=== PATIENT | female | born 1950 | race African-American/Black ===

== ENCOUNTER → 2017-01-28 | Outpatient (CLI) | payer OTHER, MEDICAID ==
[2017-01-28 11:58] LABS: BASOPHILS # (AUTO) 0.1 X10^3/uL (0.0-0.1); BASOPHILS % (AUTO) 1.1 % (0.2-1.0); EOSINOPHILS # (AUTO) 0.2 x10^3/uL (0.0-0.2); EOSINOPHILS % (AUTO) 3.5 % (0.9-2.9); HEMATOCRIT 37.7 % (36.0-47.0); HEMOGLOBIN 12.8 g/dL (12.0-16.0); LYMPHOCYTES # (AUTO) 2.7 X10^3/uL (1.3-2.9); LYMPHOCYTES % (AUTO) 41.9 % (21.0-51.0); MEAN CORPUSCULAR HEMOGLOBIN 30.8 pg (27.0-34.0); MEAN CORPUSCULAR HGB CONC 33.8 g/dL (33.0-35.0); MEAN CORPUSCULAR VOLUME 91.1 fL (80.0-100.0); MEAN PLATELET VOLUME 8.6 fL (7.4-11.0); MONOCYTES # (AUTO) 0.7 x10^3/uL (0.3-0.8); NEUTROPHILS # (AUTO) 2.7 x10^3/uL (2.2-4.8); NEUTROPHILS % (AUTO) 42.5 % (42.0-75.0); PLATELET COUNT 221 X10^3/uL (150.0-450.0); RED BLOOD COUNT 4.14 X10^6/uL (3.5-5.4); RED CELL DISTRIBUTION WIDTH 14.5 % (11.6-16.5); WHITE BLOOD COUNT 6.4 X10^3/uL (3.6-10.0)
[2017-01-28 12:16] LABS: ALANINE AMINOTRANSFERASE 17 Units/L (12-78); ALBUMIN 3.2 g/dL (3.4-5.0); ALKALINE PHOSPHATASE 82 Units/L (46-116); ASPARTATE AMINO TRANSFERASE 15 Units/L (15-37); BLOOD UREA NITROGEN 16 mg/dL (7-18); CALCIUM 8.8 mg/dL (8.5-10.1); CARBON DIOXIDE 30.4 mmol/L (21-32); CHLORIDE 108 mmol/L (98-107); CHOL/HDL RATIO 5.4 (0.0-5.0); CHOLESTEROL 216 mg/dL (0-200); COR CA(FOR HYPOALB) 9.4 mg/dL (8.5-10.1); CREATININE 0.83 mg/dL (0.55-1.02); HDL CHOLESTEROL 40 mg/dL (40-60); SODIUM 141 mmol/L (136-145); T4 (THYROXINE) 7.9 ug/dL (4.7-13.3); TOTAL PROTEIN 7.2 g/dL (6.4-8.2); TRIGLYCERIDES 52 mg/dL (0-150); TSH (3RD GENERATION) 0.924 uIU/mL (0.358-3.74); eGFR BLACK RACES > 60 (>60); eGFR NON BLACK RACES > 60 (>60)
== END ==
LOC: RAD 10:56
PROVIDERS: ATTEND Psychiatry & Neurology Neurology
DX: R29.90 Unspecified symptoms and signs involving the nervous system (principal); R94.31 Abnormal electrocardiogram [ECG] [EKG]; E78.4 Other hyperlipidemia
CPT/HCPCS: 36415; 80053; 80061; 82607; 82746; 84436; 84443; 84480; 85025; 86592; 93005; 93010

== ENCOUNTER → 2017-02-02 | Outpatient (CLI) | payer OTHER, MEDICAID ==
--- NOTE | 2017-02-02 19:21 | VAS ---
HISTORY: Stroke Study: Color flow and duplex Doppler studies were performed of the neck vessels. Comparison: None Technique: Multiple pina scale and color flow Doppler images of the right and left carotid arterial s ystem were obtained. The vertebral arterial system was evaluated as well. Findings: There is mild intimal thickening and minimal plaque in the bifurcations. There is no significant incr ease in the peak velocities on the right. The peak velocity on the left measures 103 centimeters/seco nd . The ICA to CCA ratio on the right is 0.8 and on the left is 1.9. The vertebrals were not well de lineated. IMPRESSION: Mild intimal thickening and minimal plaque in the bifurcations causing narrowing along the proximal l eft internal carotid artery in the range of 15-30% with no hemodynamically significant narrowing or p laque seen. Reported By:
--- NOTE | 2017-02-03 08:39 | MRI ---
STUDY: MRI OF THE BRAIN WITHOUT GADOLINIUM HISTORY: Stroke-like symptoms. Headaches, weakness, altered mental status. Technique: Multiplanar multi-sequence MRI of the brain was obtained utilizing standard departmental p rotocol. Sagittal and axial T1, axial T2, FLAIR, diffusion (DWI/ADC) images through the brain were pe rformed. Comparison: None. Findings: The sulci, cisterns and ventricles are prominent consistent with diffuse volume loss. There are confl uent and scattered foci of T2 prolongation in the periventricular and subcortical white matter of bot h hemispheres. This is a nonspecific finding which likely represents microangiopathic change in a pat ient of this age. There are old lacunar infarcts with cystic encephalomalacia in both basal ganglia. There is an old in farct in the body of the corpus callosum. There are old infarcts in the cerebellar hemispheres bilate rally. There is no evidence of acute territorial infarction, hemorrhage, mass, mass effect, or midlin e shift. There are no abnormal intra-axial or extra-axial fluid collections. The major intracranial vascular flow voids appear intact. The vertebral arteries are codominent. IMPRESSION: 1. No evidence of acute intracranial abnormality. 2. 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 3. Nonspecific white matter change and volume loss. Reported By:
--- NOTE | 2017-02-03 08:56 | MRI ---
STUDY: MRA OF THE BRAIN HISTORY: Stroke-like symptoms. Headaches, weakness, altered mental status. Comparison: None. Technique: 3D [id number] imaging of the intracranial circulation was performed. 3D reformatted i mages were performed and reviewed. Findings: 3D [id number] MRA examination shows focal stenosis in the distal right vertebral artery . This is just distal to a branch, and there is subsequent normalization of flow related enhancement just befo re the basilar artery. There is atherosclerotic irregularity in the cavernous internal carotid arteri es bilaterally. There is a small stenosis at the left MCA bifurcation. The remaining major vessels sh ow normal flow related enhancement. There is no evidence of hemodynamically significant stenosis or a neurysm. There is a left posterior communicating artery. The vertebral arteries are codominant. IMPRESSION: 1. Atherosclerotic irregularity in the internal carotid arteries bilaterally, with focal stenoses noted in the distal right vertebral artery and left MCA bifurcation. Reported By:
--- NOTE | 2017-02-03 09:50 | MRI ---
STUDY: MRA NECK History: Stroke-like symptoms. Headaches, weakness, altered mental status. Technique: 2D [id number] and 3D [id number] MRA examinations of the neck was performed. 3D re formatted images were performed and reviewed. Comparison: None. Findings: There is image degradation from patient motion at the origin of the great vessels. Otherwis e, there is normal flow related enhancement in both common carotid arteries and internal carotid brendon jasmyn. The right internal carotid artery is tortuous. There is no evidence of hemodynamically signific ant stenosis or dissection. The vertebral arteries are codominant. There is normal flow related enhan cement in both vertebral arteries, to the level of their dural insertion. There is focal stenosis in the right vertebral artery just proximal to the basilar artery. Impression: 1. Normal MRA examination of the neck, without evidence of hemodynamically significant stenosis or di ssection. 2. Please see MRA examination of the brain for further detail. Reported By:
== END | disposition home or self-care (01) | DRG 93 ==
LOC: RAD 14:04
PROVIDERS: ATTEND Psychiatry & Neurology Neurology
DX: R29.90 Unspecified symptoms and signs involving the nervous system (principal); G93.89 Other specified disorders of brain
CPT/HCPCS: 70544; 70547; 70551; 93880; 95819

== ENCOUNTER → 2017-02-18 | Outpatient (CLI) | payer OTHER, MEDICAID | LOC: RAD 14:11 | PROVIDERS: ATTEND Psychiatry & Neurology Neurology | DX: R29.90 Unspecified symptoms and signs involving the nervous system (principal); R94.31 Abnormal electrocardiogram [ECG] [EKG] | CPT/HCPCS: 93306 ==